=== PATIENT | male | born 1945 | race Asian ===

== ENCOUNTER 2018-07-25 18:46 | Emergency (ER) | payer OTHER ==
[~2018-07-25] VITALS: Ht 170.2 cm; Wt 81.6 kg
[2018-07-25 19:11] VITALS: BP 132/55
[2018-07-25 20:25] VITALS: BP 132/55
== END 2018-07-25 20:25 | disposition home or self-care (01) ==
LOC: MED 18:46
DX: H66.93 Otitis media, unspecified, bilateral (principal)
CPT/HCPCS: 99283